=== PATIENT | female | born 1995 ===

== ENCOUNTER 2016-08-30 11:49 | Emergency (ER) | payer OTHER ==
[2016-08-30 14:02] VITALS: BP 140/90
--- NOTE | 2016-08-30 14:48 | UC ---
Throat Pain/Nasal Barry HPI - HPI Summary HPI Summary: PATIENT ARRIVES WITH CC OF LEFT SIDED CHEEK SWELLING AND PAIN WHICH RADIATES TO THE LEFT EAR SINCE LAST NIGHT. DENIES HX OF DENTAL INFECTIONS, EAR INFECTIONS OR STREP THROAT. SHE STATES WHILE EATING, HER CHEEK SWELLED UP QUICKLY AND HAS BEEN CONSTANTLY SWOLLEN SINCE THEN. SHE NOTES TO SOME PAIN, BUT SWELLING IS MORE CONCERNING FOR HER. DENIES PAIN WITH SWALLOWING, FEVER, SWEATS OR CHILLS. - History of Current Complaint Chief Complaint: UCEar Stated Complaint: LEFT SIDE JAW/EAR PAIN Time Seen by Provider: 08/30/16 14:07 Hx Obtained From: Patient Hx Last Menstrual Period: unknown ?: No Onset/Duration: Sudden Onset Severity: Moderate Pain Intensity: 5 Pain Scale Used: 0-10 Numeric - Epiglottits Risk Factors Epiglottis Risk Factors: Negative - Allergies/Home Medications Allergies/Adverse Reactions: Allergies Allergy/AdvReac Type Severity Reaction Status Date / Time Sulfamethoxazole Allergy Vomiting Verified 08/30/16 13:55 w/Trimethoprim [From Bactrim] Home Medications: Home Medications Amphetamine-Dextroamphetamine [Adderall 10 mg-] 1 tab PO DAILY 08/30/16 [ History Confirmed 08/30/16] Escitalopram (NF) [Lexapro (NF)] 20 mg PO DAILY 08/30/16 [History Confirmed 08/13] Ibuprofen TAB* [Advil TAB*] 200 mg PO Q6H PRN 08/30/16 [History Confirmed ] Lisinopril [Zestril 5 MG-] 5 mg PO DAILY 08/30/16 [History Confirmed 08/30/16] Norethindrone (Contraceptive) [Dena-Be] 0.35 mg PO DAILY 08/30/16 [History Confirmed 08/30/16] PMH/Surg Hx/FS Hx/Imm Hx Previously Healthy: Yes Cardiovascular History Of: Reports: Hypertension - Surgical History Surgical History: Yes Surgery Procedure, Year, and Place: R groin lymph node removal - Family History Known Family History: Positive: Unknown - Social History Occupation: Student Lives: With Family Alcohol Use: Occasionally Substance Use Type: None Smoking Status (MU): Never Smoked Tobacco Have You Smoked in the Last Year: No Review of Systems Constitutional: Negative ENT: Sore Throat, Other - LEFT SIDED CHEEK SWELLING Respiratory: Negative Cardiovascular: Negative Motor: Negative Neurovascular: Negative Musculoskeletal: Negative Neurological: Negative Psychological: Negative All Other Systems Reviewed And Are Negative: Yes Physical Exam Triage Information Reviewed: Yes Appearance: Well-Appearing, Well-Nourished Vital Signs: Initial Vital Signs Temp 99.5 F 08/30/16 13:57 Pulse 85 08/30/16 13:57 Resp 16 08/30/16 13:57 BP 140/90 08/30/16 13:57 Pulse Ox 99 08/30/16 13:57 Vital Signs Reviewed: Yes Eye Exam: Normal Eyes: Positive: Conjunctiva Clear ENT: Positive: Normal ENT inspection, Pharynx normal Dental Exam: Normal Neck exam: Normal Neck: Positive: Supple Respiratory Exam: Normal Respiratory: Positive: Chest non-tender, Lungs clear Cardiovascular Exam: Normal Cardiovascular: Positive: RRR Abdominal Exam: Normal Abdomen Description: Positive: Nontender Neurological Exam: Normal Neurological: Positive: Alert Skin Exam: Normal Throat Pain/Nasal Course/Dx - Course Course Of Treatment: PATIENT TREATED FOR LIKELY SIALADENITIS BASED ON SYMPTOMS. NO PHARYNGEAL ERYTHEMA, UVULA MIDLINE, TM'S NORMAL. SHE MAY HAVE AN OBSTRUCTION D/T CONTINUING SWELLING, PAIN WHICH RADIATES TO THE EAR AND ACUTE ONSET. WILL TREAT WITH AUGMENTIN AND TESSALON PERLES FOR CONSTANT COUGH SINCE 2 WEEKS AGO. INSTRUCTIONS GIVEN FOR RELIEF SUCH IBUPROFEN, HARD CANDY AND WORSENING SYMPTOMS TO RETURN TO . PATIENT AGREES TO BE DISCHARGED HOME WITH CLOSE FOLLOW UP WITH PCP. - Differential Dx/Diagnosis Differential Diagnosis/HQI/PQRI: Peritonsillar Abscess, Pharyngitis, Tonsillitis Provider Diagnoses: SIALADENITIS Discharge - Discharge Plan Condition: Stable Disposition: HOME Prescriptions: Amoxicillin/Clavulanate TAB* [Augmentin TAB 875*] 875 mg PO BID #20 tab MDD 2 Benzonatate CAP* [Tessalon CAP*] 100 mg PO TID #21 cap Patient Education Materials: Parotid Duct Obstruction (ED), Sialoadenitis (ED) Additional Instructions: DO NOT SMOKE HARD CANDY - USUALLY LEMON DROPS - WILL HELP THE MOST. IBUPROFEN FOR PAIN AND INFLAMMATION IF SYMPTOMS WORSEN, FAIL TO IMPROVE WITH ANTIBIOTICS OR YOU DEVELOP A FEVER OR REDNESS AROUND THE CHEEK, COME BACK TO OR GO TO THE ED.
== END 2016-08-30 14:44 | disposition home or self-care (01) ==
LOC: UCCORT 11:49
DX: K11.20 Sialoadenitis, unspecified (principal); I10 Essential (primary) hypertension; Z88.2 Allergy status to sulfonamides
CPT/HCPCS: 99202; G0463